=== PATIENT | male | born 1975 | race African-American/Black ===

== ENCOUNTER 2018-05-07 05:24 | Inpatient (IN) ==
[2018-05-07] MEDS ORDERED: HYDROmorphone PF Inj 2 MG/ML Vial IV.PUSH ONE (05:51)
[2018-05-07] MEDS ORDERED: Sod Chloride 0.9% Inj 1,000 ML IV.SIG SCH (06:00)
--- NOTE | 2018-05-07 06:10 | ED ---
HPI General Chief complaint: Sickle Cell Stated complaint: pain Time Seen by Provider: 05/07/18 05:49 Source: patient Mode of arrival: ambulatory Limitations: no limitations History of Present Illness HPI narrative: The patient is a 42 year old male who presents to the [facility] emergency department with a history of reported sickle cell pain crisis that began at 11:15 PM. He reports that it awoke him from sound sleep. He reports that he last took a oxycodone for pain at 7:30 PM. He reports that he is visiting from [place]. The patient reports having a history of sickle cell anemia. He reports that his pain is located in the left hip and low back. He denies having any fevers or chills. He denies having any chest pain, chest pressure, or shortness of breath. On review of systems otherwise, the patient denies having any cough, congestion, neck pain, abdominal pain, vomiting, diarrhea, urinary symptoms, or neurologic symptoms. The patient reports having some swelling in his left leg. He reports that this comes and goes related to a prior injury. Related Data Home Medications Medication Instructions Recorded Confirmed allopurinol 300 mg PO DAILY 05/07/18 05/07/18 folic acid 1 mg PO DAILY 05/07/18 05/07/18 hydroxyurea 500 mg PO DAILY NEB 05/07/18 05/07/18 Allergies Allergy/AdvReac Type Severity Reaction Status Date / Time butorphanol Allergy Severe N/V Unverified 05/07/18 05:26 ketorolac Allergy Severe Itching Unverified 05/07/18 05:26 AND SOB morphine Allergy Severe ITCHING, Unverified 05/07/18 05:26 HIVES, SOB promethazine Allergy Severe SOB AND Unverified 05/07/18 05:26 TWITCHING Review of Systems ROS: all other systems reviewed are negative [facility] Medical History Medical History Port-A-Cath in place (Acute) Sickle cell anemia (Acute) Surgical History Surgical History No history of previous surgery (Acute) S/P cholecystectomy (Acute) S/P hip replacement (Acute) Social History Social History Substance History: No History of Abuse Smoking Status: Current every day smoker Tobacco Type: Cigarettes Cigarettes Per Day: 3.5 How Often Do You Have a Drink Containing Alcohol: Never Recent Travel in [facility] within the Last 8 Weeks: No Recent Out of Country Travel within the Last 8 Weeks: No Immunization History Tetanus Immunization: <5 Years Exam Const General: cooperative, no acute distress and well developed Nutritional Appearance: well nourished Orientation: alert, awake and oriented x3 [facility] Head: normocephalic and atraumatic Nose: no nasal discharge and no epistaxis Mouth: moist mucous membranes Throat: posterior oropharynx normal and uvula midline Eyes Sclera: normal sclerae Pupils: PERRL Neck Neck: no meningeal signs, trachea midline and no JVD Resp Effort & Inspection: no use of accessory muscles Auscultation: clear to auscultation bilaterally Cardio Rate: regular rate Rhythm: regular rhythm Heart Sounds: murmur (1/6 systolic murmur, no gallops or rubs.) GI Inspection: non-distended Palpation: soft, no hepatosplenomegaly, no guarding, not rigid and nontender Auscultation: normal bowel sounds Back/Spine/Pelvis Back: no CVA tenderness Cervical Spine: No cervical spinal tenderness Thoracic/Lumbar Spine: No thoracic spinal tenderness and No lumbar spinal tenderness Skin General: dry skin (warm) Neuro General: alert, awake, oriented x3 and other (Grossly nonfocal.) Speech: speech normal Motor: no movement abnormalities noted Extrem General: normal to inspection (Except in the area of interest, the left lower extremity. The patient has scarring noted from prior skin grafting, left leg is slightly larger than the right. No joint redness or swelling.), calf tenderness, no clubbing, no cyanosis and edema Laterality: on the left Left upper extremity: normal to inspection and full ROM Right lower extremity: normal to inspection and full ROM Left lower extremity: lower leg (Scarring noted to the left lower extremity from prior skin grafting. Left leg is slightly enlarged compared to the right.) Psych Mood: congruent mood Affect: normal affect Judgment: judgment good Course Initial Documented Vital Signs Temperature 98.8 F 05/07/18 05:27 Respiratory Rate 16 05/07/18 05:27 Blood Pressure 164/90 H 05/07/18 05:27 Pulse Oximetry 96 05/07/18 05:27 Last Documented Vital Signs Temperature 98.8 F 05/07/18 05:27 Pulse Rate 68 05/07/18 06:36 Respiratory Rate 18 05/07/18 06:36 Blood Pressure 138/58 L 05/07/18 06:36 Pulse Oximetry 97 05/07/18 06:36 Sign Out Sign Out Data: Patient Sign Out occurred on 05/07/18 at 08:13. Patient's care was discussed, and care was transferred from Sonam Hughes MD to Chiki Phillips MD. Sign Out Comment: The patient's case was checked out to the oncoming emergency physician to disposition the patient based on the conclusion of his workup. The patient's case was checked out at the conclusion of my shift. The patient is pending laboratory studies and ultrasound of the left lower extremity to rule out DVT as well as reexamination for pain improvement after pain medication administration. Last updated by Sonam Hughes MD at 05/07/18 06:40 Post-Handoff Eval: Case is checked out to me at [address] Hughes. Workup is reviewed in entirety with the patient. Hemoglobin is down to 6.0. Ultrasound negative for DVT. Patient will be admitted to the medical residents for blood transfusion and symptom relief and IV hydration. He is renal insufficiency as well. Medical Decision Making MDM Narrative Medical decision making narrative: During the course of the patient's emergency department visit, the patient's history, examination, and differential diagnosis were reviewed with the patient. The patient was placed on a property assessment monitor with oximetry and frequent blood pressure monitoring. The patient had IV access obtained and blood work sent for analysis. Diagnostic evaluation was started regarding the patient's reported sickle cell related pain. An ultrasound of the left lower extremity was ordered to rule out DVT due to the swelling noted. The patient was initially provided normal saline 1 L IV fluid bolus, Dilaudid 1 mg IV, Zofran 4 mg IV. The patient's laboratory studies and ultrasound are pending at the conclusion of my shift. The patient's case will be checked out to the oncoming emergency physician to disposition the patient based on the conclusion of his workup and reexamination for pain improvement. Medical Screen Exam Complete: Yes Emergency Medical Condition: Yes Differential Diagnosis Differential Diagnosis: Sickle cell pain crisis, versus arthritis, versus DVT Medical Records Medical records reviewed: Yes I reviewed the patient's medical records. Lab Data Result diagrams: 05/07/18 06:01 05/07/18 06:01 Lab Results 05/07/18 05/07/18 05/07/18 Range/Units 06:01 06:01 06:01 WBC 13.7 H (4.0-11.0) th/mm3 RBC 1.76 L (4.50-5.90) mil/mm3 Hgb 6.0 L* (13.0-17.0) gm/dL Hct 18.1 L* (39.0-51.0) % MCV 102.8 H (80.0-100.0) fL MCH 34.1 H (27.0-34.0) pg MCHC 33.1 (32.0-36.0) % RDW 22.2 H (11.6-17.2) % Plt Count 235 (150-450) th/mm3 MPV 8.1 (7.0-11.0) fL Prelim Diff (Auto) Slide review pending Neut % (Auto) 39.9 (16.0-70.0) % Lymph % (Auto) 42.7 (9.0-44.0) % [place] % (Auto) 8.9 H (0.0-8.0) % Eos % (Auto) 8.0 H (0.0-4.0) % Baso % (Auto) 0.5 (0.0-2.0) % Neut # (Auto) 5.4 (1.8-7.7) th/mm3 Lymph # (Auto) 5.8 H (1.0-4.8) th/mm3 [place] # (Auto) 1.2 H (0.0-0.9) th/mm3 Eos # (Auto) 1.1 H (0.0-0.4) th/mm3 Baso # (Auto) 0.1 (0.0-0.2) th/mm3 WBC Differential Manual diff final Seg Neuts % (Manual) 39 (16-70) % Band Neuts % (Manual) 1 (0-6) % Lymphocytes % (Manual) 46 H (9-44) % Monocytes % (Manual) 6 (0-8) % Eosinophils % (Manual) 7 H (0-4) % Myelocytes % (Man) 1 H (0-0) % Abs Neuts (Manual) 5.6 (1.8-7.7) th/mm3 Nucleated RBCs/100 WBC 2 H (0-0) /100 WBC Differential Comment . Platelet Estimate Normal (Normal) Platelet Morphology Normal (Normal) Polychromasia 2.8 H (0.0-1.9) % Pappenheimer Bodies Present H (None) Ovalocytes 1+ H (None) Retic Count 8.6 H (0.4-3.0) % Absolute Retic 150.4 H (20.0-150.0) mil/L PT (9.8-11.6) sec INR Ratio APTT (23.4-31.7) sec Sodium 145 (136-145) meq/L Potassium 5.4 H (3.5-5.1) meq/L Chloride 120 H (98-107) meq/L Carbon Dioxide 19.2 L (21.0-32.0) meq/L Anion Gap 6 (5-15) meq/L BUN 44 H (7-18) mg/dL Creatinine 2.68 H (0.60-1.30) mg/dL Estimated GFR 32 L (>89) mL/min Random Glucose 89 (74-106) mg/dL Calcium 7.8 L (8.5-10.1) mg/dL Total Bilirubin 1.2 H (0.2-1.0) mg/dL AST 23 (15-37) U/L ALT 28 (12-78) U/L Alkaline Phosphatase 140 H (45-117) U/L C-Reactive Protein 1.23 H Cancelled (0.00-0.30) mg/dL Total Protein 6.8 (6.4-8.2) g/dL Albumin 3.1 L (3.4-5.0) g/dL Lipase 328 (73-393) U/L Urine Color (Yellw/Straw) Urine Clarity (Clear) Urine pH (5.0-8.5) Ur Specific [place] (1.002-1.035) Urine Protein (Neg-Trace) mg/dL Urine Glucose (UA) (Negative) mg/dL Urine Ketones (Negative) mg/dL Urine Occult Blood (Negative) Urine Nitrate (Negative) Urine Bilirubin (Negative) Urine Urobilinogen (Less than 2) mg/dL Ur Leukocyte Esterase (Negative) Urine RBC (0-3) /hpf Urine WBC (0-5) /hpf Urine Mucus (Occasional) /lpf Micro UA Comment Ur Microscopic Review Urine Culture Comments 05/07/18 05/07/18 05/07/18 Range/Units 06:01 06:11 07:40 WBC (4.0-11.0) th/mm3 RBC (4.50-5.90) mil/mm3 Hgb (13.0-17.0) gm/dL Hct (39.0-51.0) % MCV (80.0-100.0) fL MCH (27.0-34.0) pg MCHC (32.0-36.0) % RDW (11.6-17.2) % Plt Count (150-450) th/mm3 MPV (7.0-11.0) fL Prelim Diff (Auto) Neut % (Auto) (16.0-70.0) % Lymph % (Auto) (9.0-44.0) % [place] % (Auto) (0.0-8.0) % Eos % (Auto) (0.0-4.0) % Baso % (Auto) (0.0-2.0) % Neut # (Auto) (1.8-7.7) th/mm3 Lymph # (Auto) (1.0-4.8) th/mm3 [place] # (Auto) (0.0-0.9) th/mm3 Eos # (Auto) (0.0-0.4) th/mm3 Baso # (Auto) (0.0-0.2) th/mm3 WBC Differential Seg Neuts % (Manual) (16-70) % Band Neuts % (Manual) (0-6) % Lymphocytes % (Manual) (9-44) % Monocytes % (Manual) (0-8) % Eosinophils % (Manual) (0-4) % Myelocytes % (Man) (0-0) % Abs Neuts (Manual) (1.8-7.7) th/mm3 Nucleated RBCs/100 WBC (0-0) /100 WBC Differential Comment Platelet Estimate (Normal) Platelet Morphology (Normal) Polychromasia (0.0-1.9) % Pappenheimer Bodies (None) Ovalocytes (None) Retic Count (0.4-3.0) % Absolute Retic (20.0-150.0) mil/L PT 10.5 (9.8-11.6) sec INR 1.0 Ratio APTT 31.3 (23.4-31.7) sec Sodium (136-145) meq/L Potassium (3.5-5.1) meq/L Chloride (98-107) meq/L Carbon Dioxide (21.0-32.0) meq/L Anion Gap (5-15) meq/L BUN (7-18) mg/dL Creatinine (0.60-1.30) mg/dL Estimated GFR (>89) mL/min Random Glucose (74-106) mg/dL Calcium (8.5-10.1) mg/dL Total Bilirubin (0.2-1.0) mg/dL AST (15-37) U/L ALT (12-78) U/L Alkaline Phosphatase (45-117) U/L C-Reactive Protein (0.00-0.30) mg/dL Total Protein (6.4-8.2) g/dL Albumin (3.4-5.0) g/dL Lipase Cancelled (73-393) U/L Urine Color Straw (Yellw/Straw) Urine Clarity Clear (Clear) Urine pH 6.0 (5.0-8.5) Ur Specific [place] 1.006 (1.002-1.035) Urine Protein 100 H (Neg-Trace) mg/dL Urine Glucose (UA) Negative (Negative) mg/dL Urine Ketones Negative (Negative) mg/dL Urine Occult Blood Negative (Negative) Urine Nitrate Negative (Negative) Urine Bilirubin Negative (Negative) Urine Urobilinogen Less than 2 (Less than 2) mg/dL Ur Leukocyte Esterase Negative (Negative) Urine RBC Less than 1 (0-3) /hpf Urine WBC Less than 1 (0-5) /hpf Urine Mucus Few H (Occasional) /lpf Micro UA Comment Culture not ind Ur Microscopic Review Not Reportable Urine Culture Comments Culture not ind Imaging Data Radiologist's impression: Venous Doppler Study 05/07/18 05:50 CONCLUSION: 1. The study is negative for lower extremity deep venous thrombosis. ECG Data Attestation: I personally reviewed and interpreted this ECG as follows: Interpretation: The patient had a EKG done on arrival. The patient's EKG shows a sinus rhythm with a sinus arrhythmia, heart rate of 68, QRS duration is 89 ms , QTC 399 ms. T waves are inverted in aVL. Discharge Plan Discharge Disposition Patient Disposition: 30 Still Patient Discharge Details Diagnosis: Sickle cell pain crisis Physicians Team ED Provider: Chiki Phillips Rxs /Orders / Referrals /Forms Prescriptions: No Action folic acid 1 mg Tablet 1 mg PO DAILY RF: 0 hydroxyurea 500 mg Capsule 500 mg PO DAILY NEB RF: 0 allopurinol 300 mg Tablet 300 mg PO DAILY RF: 0 Status ED Status: With Doctor
[2018-05-07 06:46] LABS: Bilirubin,Urine Negative (Negative); Clarity,Urine Clear (Clear); Color,Urine Straw (Yellw/Straw); Glucose,Urine (UA) Negative (Negative); Leukocyte Esterase,Urine Negative (Negative); Mucus,Urine Few /lpf (Occasional); Nitrite,Urine Negative (Negative); Specific Gravity,Urine 1.006 (1.002-1.035)
[2018-05-07 07:03] LABS: Alanine Aminotransferase 28 U/L (12-78); Albumin 3.1 g/dL (3.4-5.0); Anion Gap 6 meq/L (5-15); Aspartate Aminotransferase 23 U/L (15-37); Blood Urea Nitrogen 44 mg/dL (7-18); C-Reactive Protein 1.23 mg/dL (0.00-0.30); Calcium 7.8 mg/dL (8.5-10.1); Carbon Dioxide 19.2 meq/L (21.0-32.0); Chloride 120 meq/L (98-107); Glomerular Filtration Rate 32 mL/min (>89); Glucose,Random 89 mg/dL (74-106); Lipase 328 U/L (73-393); Potassium 5.4 meq/L (3.5-5.1); Sodium 145 meq/L (136-145)
[2018-05-07 07:05] LABS: Alkaline Phosphatase 140 U/L (45-117); Total Protein 6.8 g/dL (6.4-8.2)
[2018-05-07 07:23] LABS: Baso # (Auto) 0.1 th/mm3 (0.0-0.2); Baso % (Auto) 0.5 % (0.0-2.0); Eos # (Auto) 1.1 th/mm3 (0.0-0.4); Lymph # (Auto) 5.8 th/mm3 (1.0-4.8); Lymph % (Auto) 42.7 % (9.0-44.0); Mean Corpuscular HGB Conc 33.1 % (32.0-36.0); Mean Corpuscular Hemoglobin 34.1 pg (27.0-34.0); Mean Corpuscular Volume 102.8 fL (80.0-100.0); Mean Platelet Volume 8.1 fL (7.0-11.0); Mono # (Auto) 1.2 th/mm3 (0.0-0.9); Mono % (Auto) 8.9 % (0.0-8.0); Neut # (Auto) 5.4 th/mm3 (1.8-7.7); Neut % (Auto) 39.9 % (16.0-70.0); Platelet Count 235 th/mm3 (150-450); Red Blood Count 1.76 mil/mm3 (4.50-5.90); Red Cell Distribution Width 22.2 % (11.6-17.2); Reticulocyte Percent 8.6 % (0.4-3.0); White Blood Count 13.7 th/mm3 (4.0-11.0)
[2018-05-07 07:28] LABS: Hematocrit 18.1 % (39.0-51.0)
--- NOTE | 2018-05-07 07:42 | US ---
EXAM DATE: 05/07/2018 7:38 AM EST AGE/SEX: 42 years / Male INDICATIONS: Left leg swelling. CLINICAL DATA: This is the patient's initial encounter. Patient reports that signs and symptoms have been present for 3 days and indicates a pain score of 3/10. MEDICAL/SURGICAL HISTORY: . Sickle cell anemia. Cholecystectomy. Port a cath placement. Right hip replacement. COMPARISON: No prior exams available for comparison. TECHNIQUE: Venous ultrasound of both lower extremities was performed from the inguinal ligament to t he proximal calf. Real-time, color Doppler and spectral tracing, compression and augmentation techni ques were used. FINDINGS: Normal compression of the deep venous system from the inguinal region to the proximal calf . No echogenic clot is seen. Normal response of the venous system to augmentation and respiration. CONCLUSION: 1. The study is negative for lower extremity deep venous thrombosis. Electronically signed by: David Bob MD 05/07/2018 7:40 AM EST
[2018-05-07 07:59] LABS: Activated Partial Thrombo Time 31.3 sec (23.4-31.7); Prothrombin Time 10.5 sec (9.8-11.6)
[2018-05-07 07:59] LABS: Eosinophils 7 % (0-4); Lymphocytes 46 % (9-44); Monocytes 6 % (0-8); Myelocytes 1 % (0-0); Ovalocytes 1+; Platelet Estimate Normal (Normal); Platelet Morphology Normal (Normal); Tallied Nucleated RBC 2 (0-0)
[2018-05-07 08:00] LABS: Pappenheimer Bodies Present; Polychromasia 2.8 % (0.0-1.9)
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
[2018-05-07] MEDS ORDERED: Bisacodyl 10 MG Supp RECTAL PRN (08:52)
[2018-05-07] MEDS ORDERED: Naloxone Inj 0.4 MG/ML Vial IV.PUSH PRN (08:52)
[2018-05-07] MEDS ORDERED: Acetaminophen 325 MG Tablet PO PRN (08:52)
[2018-05-07] MEDS: HYDROmorphone PF Inj 1 MG/ML Ampul IV.PUSH PRN ×5 (09:29→22:47)
--- NOTE | 2018-05-07 09:57 | XR ---
EXAM DATE: 05/07/2018 9:49 AM EST AGE/SEX: 42 years / Male INDICATIONS: . Short of breath, history of Sickle cell CLINICAL DATA: This is the patient's initial encounter. Patient reports that signs and symptoms have been present for 1 day and indicates a pain score of 10/10. MEDICAL/SURGICAL HISTORY: Sickle Cell disease. None. COMPARISON: [facility] [place], CHEST PA & LAT, 08/19/2015. . FINDINGS: PA and lateral views of the chest demonstrate chronic appearing interstitial densities. Heart mildly enlarged. Right-sided port unchanged. The cardiomediastinal contours are unremarkable. Sclerotic simmons ges of the skeleton more notably involving the shoulders. CONCLUSION: 1. Chronic appearing interstitial densities. 2. Cardiomegaly. 3. No active consolidation. Electronically signed by: David Bob MD 05/07/2018 9:56 AM EST
--- NOTE | 2018-05-07 10:09 | XR ---
EXAM DATE: 05/07/2018 9:54 AM EST AGE/SEX: 42 years / Male INDICATIONS: Left hip pain with any motion and weight bearing. CLINICAL DATA: This is the patient's initial encounter. Patient reports that signs and symptoms have been present for 1 day and indicates a pain score of 10/10. MEDICAL/SURGICAL HISTORY: Sickle Cell disease. None. COMPARISON: [facility] – [place], PELVIS AP ONLY, 08/14/2015. . FINDINGS: Severe arthropathic deformity of the left hip is noted. There is flattening and remodeling of the fem oral head and remodeling of the acetabular cup. Marginal spurring is again noted along the superior m argin of the acetabulum. The bones demonstrate a patchy sclerotic texture with interspersed areas of radiolucency. Subcortical cyst formation appears to be present along the roof of the acetabulum. The patchy texture is also noted within the left hemipelvis. There are no discrete findings of acute fracture. There is no significant soft tissue swelling. CONCLUSION: Advanced arthropathy of the left hip joint with underlying patchy sclerosis and areas of radiolucency . As previously indicated this may represent changes of chronic bone infarction associated with sickl e cell disease. No discrete evidence of fracture or dislocation. Degenerative changes of the left hip. Electronically signed by: Neftali Cleary MD 05/07/2018 10:07 AM EST
[2018-05-07] MEDS: oxyCODONE/Acetaminophen 10/325 Tablet PO PRN ×2 (12:06→17:48)
[2018-05-07] MEDS: Sodium Chloride 0.45 % Inj 1,000 ML IV.CONT SCH ×2 (12:06→17:26)
[2018-05-07] MEDS: Hydroxyurea 500 MG Capsule PO SCH ×2 (12:06→17:48)
[2018-05-07] MEDS: Folic Acid 1 MG Tablet PO SCH (12:12)
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
--- NOTE | 2018-05-07 19:07 | US ---
EXAM DATE: 05/07/2018 6:51 PM EST AGE/SEX: 42 years / Male INDICATIONS: Increased lab values. CLINICAL DATA: This is the patient's initial encounter. Patient reports that signs and symptoms have been present for 1 day and indicates a pain score of 1/10. MEDICAL/SURGICAL HISTORY: Sickle Cell disease. Port-A -Cath in place. Cholecystectomy. Right H ip replacement. COMPARISON: No prior exams available for comparison. MEASUREMENTS: Right Kidney:__10.3 x 5.5 x 4.3 cm Left Kidney:__11.3 x 5.7 x 1.5 cm FINDINGS: Right Kidney: 1.8 cm mid zone cyst. No hydronephrosis. There is increased parenchymal echogenicity. Left Kidney: Increased echotexture. No mass or hydronephrosis. Bladder: Within normal limits given the degree of distension. Other: None. CONCLUSION: 1. Echogenic kidneys typical of chronic parenchymal disease. 2. No evidence of acute obstructive uropathy. 3. 1.8 cm benign appearing cyst of the right kidney. Electronically signed by: Armand Kendrick MD 05/07/2018 7:06 PM EST
--- NOTE | 2018-05-07 21:04 | ECG ---
Date Performed: 05/07/2018 Time Performed: 06:23:12 PTAGE: 42 years EKG: Sinus rhythm WITH SINUS ARRHYTHMIA NONSPECIFIC T-WAVE ABNORMALITY BORDERLINE ECG PREVIOUS TRACING : 08/18/2015 01.59 Since the previous tracing, no significant change noted DOCTOR: Azar Lira Interpretating Date/Time 05/07/2018 21:03:35
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
[2018-05-07] MEDS: Heparin - SQ 10,000 UNITS/ML Vial SQ SCH (21:34)
[2018-05-08] MEDS: Sodium Chloride 0.45 % Inj 1,000 ML IV.CONT SCH ×3 (03:07→19:25)
[2018-05-08] MEDS: HYDROmorphone PF Inj 1 MG/ML Ampul IV.PUSH PRN ×3 (04:59→11:12)
[2018-05-08 06:49] LABS: Baso # (Auto) 0.1 th/mm3 (0.0-0.2); Baso % (Auto) 0.4 % (0.0-2.0); Eos # (Auto) 1.1 th/mm3 (0.0-0.4); Eos % (Auto) 8.9 % (0.0-4.0); Lymph # (Auto) 4.5 th/mm3 (1.0-4.8); Lymph % (Auto) 34.6 % (9.0-44.0); Mean Corpuscular HGB Conc 34.2 % (32.0-36.0); Mean Corpuscular Hemoglobin 34.7 pg (27.0-34.0); Mean Corpuscular Volume 101.3 fL (80.0-100.0); Mean Platelet Volume 7.6 fL (7.0-11.0); Mono # (Auto) 1.2 th/mm3 (0.0-0.9); Mono % (Auto) 9.3 % (0.0-8.0); Neut % (Auto) 46.8 % (16.0-70.0); Platelet Count 219 th/mm3 (150-450); Red Blood Count 1.58 mil/mm3 (4.50-5.90); Red Cell Distribution Width 21.7 % (11.6-17.2); White Blood Count 12.9 th/mm3 (4.0-11.0)
[2018-05-08 06:53] LABS: Reticulocyte Percent 7.6 % (0.4-3.0)
[2018-05-08 06:54] LABS: Hemoglobin 5.5 gm/dL (13.0-17.0)
[2018-05-08 07:17] LABS: Alanine Aminotransferase 29 U/L (12-78); Albumin 3.1 g/dL (3.4-5.0); Anion Gap 5 meq/L (5-15); Aspartate Aminotransferase 29 U/L (15-37); Blood Urea Nitrogen 38 mg/dL (7-18); Calcium 7.5 mg/dL (8.5-10.1); Carbon Dioxide 20.5 meq/L (21.0-32.0); Chloride 119 meq/L (98-107); Glomerular Filtration Rate 35 mL/min (>89); Glucose,Random 81 mg/dL (74-106); Phosphorus 3.3 mg/dL (2.5-4.9); Potassium 5.5 meq/L (3.5-5.1); Sodium 144 meq/L (136-145)
[2018-05-08 07:19] LABS: Alkaline Phosphatase 128 U/L (45-117); Total Protein 6.3 g/dL (6.4-8.2)
[2018-05-08 07:29] LABS: Complement C3 69 mg/dL (90-180)
[2018-05-08 07:53] LABS: Eosinophils 13 % (0-4); Monocytes 4 % (0-8)
[2018-05-08 07:54] LABS: Howell-Jolly Bodies Present; Lymphocytes 37 % (9-44); Metamyelocytes 1 % (0-1); Pappenheimer Bodies Present; Tallied Nucleated RBC 12 (0-0)
[2018-05-08 07:55] LABS: Polychromasia 2.7 % (0.0-1.9)
[2018-05-08 07:56] LABS: Ovalocytes 2+; Platelet Estimate Normal (Normal); Platelet Morphology Normal (Normal); Sickle Cells 1+
[2018-05-08 08:03] LABS: Hepatitits B Surface Antigen Nonreactive (Nonreactive)
[2018-05-08] MEDS ORDERED: Sodium Polystyrene Sulfonate/Sorbitol Liq 15 GM/60 ML UDC PO ONE (08:08)
[2018-05-08 08:30] LABS: Hepatitis A IgM Antibody Nonreactive (Nonreactive)
[2018-05-08] MEDS: Folic Acid 1 MG Tablet PO SCH (08:50)
[2018-05-08] MEDS: Heparin - SQ 10,000 UNITS/ML Vial SQ SCH ×2 (08:50→21:55)
[2018-05-08] MEDS: Hydroxyurea 500 MG Capsule PO SCH ×2 (08:50→14:11)
[2018-05-08] MEDS: oxyCODONE/Acetaminophen 10/325 Tablet PO PRN ×2 (10:29→17:59)
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
[2018-05-08] MEDS ORDERED: HYDROmorphone PF Inj 1 MG/ML Ampul IV.PUSH SCH (13:00)
[2018-05-08] MEDS: HYDROmorphone PF Inj 2 MG/ML Vial IV.PUSH SCH ×4 (14:11→23:17)
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
--- NOTE | 2018-05-08 15:49 | P.PNONC ---
Subjective Interval history: Patient lying in bed, in no acute distress. He states he is feeling better today. He reports his pain has improved however he is still having low back pain and is awaiting as needed who is getting his pain medications. He denies any chest pain or shortness of breath. Objective Vital Signs/Intake & Output: Vital Signs 05/07/18 16:00 05/07/18 19:06 05/07/18 20:00 Temperature 98.5 F 98.3 F Pulse Rate 70 70 Respiratory Rate 16 18 18 Blood Pressure 117/56 L 113/54 L Pulse Oximetry 98 05/07/18 23:17 05/08/18 00:00 05/08/18 04:25 Temperature 98.5 F 98.4 F Pulse Rate 69 87 Respiratory Rate 18 17 20 Blood Pressure 118/62 126/62 Pulse Oximetry 99 93 L 05/08/18 05:29 05/08/18 08:00 05/08/18 12:00 Temperature 98.9 F 98.2 F Pulse Rate 67 71 Respiratory Rate 18 19 19 Blood Pressure 130/63 160/72 H Pulse Oximetry 93 L 92 L Intake & Output 05/07/18 05/08/18 05/08/18 18:59 06:59 18:59 Intake Total 1000 / 1000 1000 / 1000 Output Total 1000 / 1000 Balance -1000 / -1000 1000 / 1000 1000 / 1000 Weight 86.183 kg 87.4 kg Intake: IV 1000 / 1000 1000 / 1000 1/2 Normal Saline Inj 1,000 ML 1000 / 1000 1000 / 1000 @ 125 mls/hr IV.CONT .Q8H LEX Rx#:[id number] Output: Urine 1000 / 1000 Other: # Voids 1 Date of Last Bowel Movement 05/06/18 05/06/18 Weight On Admission 86.183 kg Result Diagrams: 05/08/18 05:28 05/08/18 05:28 Laboratory Results: Laboratory Results - last 24 hr 05/08/18 05/08/18 05/08/18 05:08 05:28 05:28 WBC 12.9 H RBC 1.58 L Hgb 5.5 L* Hct 16.0 L* MCV 101.3 H MCH 34.7 H MCHC 34.2 RDW 21.7 H Plt Count 219 MPV 7.6 Prelim Diff (Auto) Slide review pending Neut % (Auto) 46.8 Lymph % (Auto) 34.6 [place] % (Auto) 9.3 H Eos % (Auto) 8.9 H Baso % (Auto) 0.4 Neut # (Auto) 6.0 Lymph # (Auto) 4.5 [place] # (Auto) 1.2 H Eos # (Auto) 1.1 H Baso # (Auto) 0.1 WBC Differential Manual diff final Seg Neuts % (Manual) 44 Band Neuts % (Manual) 1 Lymphocytes % (Manual) 37 Monocytes % (Manual) 4 Eosinophils % (Manual) 13 H Metamyelocytes % (Man) 1 Abs Neuts (Manual) 5.9 Nucleated RBCs/100 WBC 12 H Differential Comment . Platelet Estimate Normal Platelet Morphology Normal Polychromasia 2.7 H Basophilic Stippling Faint H Pappenheimer Bodies Present H Sickle Cells 1+ H Ovalocytes 2+ H [place] Bodies Present H Retic Count 7.6 H Absolute Retic 122.2 Sodium Potassium Chloride Carbon Dioxide Anion Gap BUN Creatinine Estimated GFR Random Glucose Calcium Phosphorus Total Bilirubin AST ALT Alkaline Phosphatase Total Protein Albumin Ur 24 Hour Volume 2925 Ur Total Protein 24 Hr 1632 H Complement C3 Complement C4 Hepatitis A IgM Ab Hep Bs Antigen Hep B Core IgM Ab Hep C IgG Ab 05/08/18 05/08/18 05:28 05:28 WBC RBC Hgb Hct MCV MCH MCHC RDW Plt Count MPV Prelim Diff (Auto) Neut % (Auto) Lymph % (Auto) [place] % (Auto) Eos % (Auto) Baso % (Auto) Neut # (Auto) Lymph # (Auto) [place] # (Auto) Eos # (Auto) Baso # (Auto) WBC Differential Seg Neuts % (Manual) Band Neuts % (Manual) Lymphocytes % (Manual) Monocytes % (Manual) Eosinophils % (Manual) Metamyelocytes % (Man) Abs Neuts (Manual) Nucleated RBCs/100 WBC Differential Comment Platelet Estimate Platelet Morphology Polychromasia Basophilic Stippling Pappenheimer Bodies Sickle Cells Ovalocytes [place] Bodies Retic Count Absolute Retic Sodium 144 Potassium 5.5 H Chloride 119 H Carbon Dioxide 20.5 L Anion Gap 5 BUN 38 H Creatinine 2.47 H Estimated GFR 35 L Random Glucose 81 Calcium 7.5 L Phosphorus 3.3 Total Bilirubin 1.2 H AST 29 ALT 29 Alkaline Phosphatase 128 H Total Protein 6.3 L Albumin 3.1 L Ur 24 Hour Volume Ur Total Protein 24 Hr Complement C3 69 L Complement C4 23 Hepatitis A IgM Ab Nonreactive Hep Bs Antigen Nonreactive Hep B Core IgM Ab Nonreactive Hep C IgG Ab Nonreactive Imaging Studies: Impressions Abdomen/Bladder Ultrasound 05/07/18 00:00 CONCLUSION: 1. Echogenic kidneys typical of chronic parenchymal disease. 2. No evidence of acute obstructive uropathy. 3. 1.8 cm benign appearing cyst of the right kidney. Medications: Active Medications Generic Name Dose Route Start Last Admin Trade Name Freq PRN Reason Stop Dose Admin Diphenhydramine HCl 25 mg 05/07/18 12:35 05/08/18 12:00 Benadryl PO 25 mg Q6H PRN Administration ITCHING Folic Acid 1 mg 05/07/18 09:30 05/08/18 08:50 Folic Acid PO 1 mg DAILY LEX Administration Heparin Sodium (Porcine) 5,000 units 05/07/18 21:30 05/08/18 08:50 Heparin Inj SQ 5,000 units Q12HR LEX Administration Hydromorphone HCl 2 mg 05/08/18 14:00 05/08/18 14:11 Dilaudid Pf Inj IV.PUSH 2 mg Q3H LEX Administration Hydroxyurea 500 mg 05/08/18 13:00 05/08/18 14:11 Hydrea PO 500 mg Q12H LEX Administration Ondansetron HCl 4 mg 05/07/18 08:52 05/08/18 12:00 Zofran Inj IV.PUSH 4 mg Q6H PRN Administration NAUSEA OR VOMITING Oxycodone/Acetaminophen 1 tab 05/07/18 08:52 05/08/18 10:29 Percocet 10/325 Mg PO 1 tab Q6H PRN Administration PAIN SCALE 6 TO 10 Objective Remarks: GENERAL: Well-nourished, well-developed male patient, in no acute distress. SKIN: Warm and dry. HEAD: Normocephalic. EYES: No scleral icterus. No injection or drainage. NECK: Supple, trachea midline. CARDIOVASCULAR: Regular rate and rhythm without murmurs. RESPIRATORY: Breath sounds equal bilaterally. No accessory muscle use. GASTROINTESTINAL: Abdomen soft, non-tender, nondistended. EXTREMITIES: No cyanosis, or edema. MUSCULOSKELETAL: Adequate muscle tone. NEUROLOGICAL: No obvious focal deficit. Awake, alert, and oriented x3. PSYCHIATRIC: Appropriate mood and affect; insight and judgment normal. Assessment/Plan - Plan Mr. Cesar is a pleasant 42-year-old gentleman with a history of sickle cell disease, currently hospitalized for sickle cell pain crisis. His pain includes lower back pain and bilateral leg pain that started on Monday. He has additional medical history of chronic kidney disease, iron overload, hemoglobin SS disease and gout. Recommendations: 1. Sickle cell pain crisis, continue pain medications. Monitor for oversedation. Continue IV fluid for hydration. 2. Sickle cell anemia, hemoglobin 5.5 today. Currently asymptomatic. We will hold transfusions unless patient becomes symptomatic or hemodynamically unstable. He has a history of iron overload. 3. Repeat CBC in the a.m. - Attending Statement The exam, history, and the medical decision-making described in the above note were completed with the assistance of the mid-level provider. I reviewed and agree with the findings presented. I attest that I had a [id number] encounter with the patient on the same day, and personally performed and documented my assessment and findings in the medical record. 42 yoM with sickle cell disease admitted with sickle cell pain crisis. Will continue supportive care including IVF, pain control, bowel regimen, incentive spirometry. Judicious use of blood products.
[2018-05-08] MEDS ORDERED: Polyethylene Glycol 3350 17 GM Packet PO PRN (16:24)
[2018-05-08] MEDS: Sodium Bicarbonate 650 MG Tablet PO SCH ×2 (17:55→23:16)
[2018-05-09] MEDS: Hydroxyurea 500 MG Capsule PO SCH ×2 (01:00→14:13)
[2018-05-09 01:35] LABS: Calcium 7.6 mg/dL (8.5-10.1); Carbon Dioxide 19.3 meq/L (21.0-32.0); Potassium 4.7 meq/L (3.5-5.1)
[2018-05-09] MEDS: HYDROmorphone PF Inj 2 MG/ML Vial IV.PUSH SCH ×5 (02:23→14:13)
[2018-05-09] MEDS: Sodium Chloride 0.45 % Inj 1,000 ML IV.CONT SCH ×2 (02:24→04:00)
[2018-05-09 08:29] LABS: Baso # (Auto) 0.1 th/mm3 (0.0-0.2); Baso % (Auto) 0.8 % (0.0-2.0); Eos # (Auto) 1.3 th/mm3 (0.0-0.4); Eos % (Auto) 9.8 % (0.0-4.0); Lymph # (Auto) 5.2 th/mm3 (1.0-4.8); Lymph % (Auto) 38.7 % (9.0-44.0); Mean Corpuscular HGB Conc 34.7 % (32.0-36.0); Mean Corpuscular Hemoglobin 34.5 pg (27.0-34.0); Mean Corpuscular Volume 99.4 fL (80.0-100.0); Mean Platelet Volume 7.4 fL (7.0-11.0); Mono # (Auto) 1.2 th/mm3 (0.0-0.9); Neut # (Auto) 5.6 th/mm3 (1.8-7.7); Neut % (Auto) 41.7 % (16.0-70.0); Platelet Count 209 th/mm3 (150-450); Red Blood Count 1.51 mil/mm3 (4.50-5.90); Red Cell Distribution Width 22.8 % (11.6-17.2); White Blood Count 13.5 th/mm3 (4.0-11.0)
[2018-05-09] MEDS: Folic Acid 1 MG Tablet PO SCH (08:31)
[2018-05-09] MEDS: Sodium Bicarbonate 650 MG Tablet PO SCH (08:31)
[2018-05-09 08:47] LABS: Hemoglobin 5.2 gm/dL (13.0-17.0)
[2018-05-09 09:01] LABS: Calcium 7.6 mg/dL (8.5-10.1)
[2018-05-09 10:44] LABS: Eosinophils 6 % (0-4); Lymphocytes 59 % (9-44); Monocytes 4 % (0-8); Ovalocytes 1+; Platelet Estimate Normal (Normal); Platelet Morphology Normal (Normal); Tallied Nucleated RBC 3 (0-0)
[2018-05-09 10:45] LABS: Howell-Jolly Bodies Present; Pappenheimer Bodies Present; Sickle Cells 1+; Target Cells 1+
--- NOTE | 2018-05-09 11:24 | P.PNFP ---
Subjective Interval history: Patient seen and examined at bedside this morning. Patient reports that his pain is well controlled and much less severe than it had been the past 2 days. He denies any chest pain, shortness of breath. He is moving his bowels. His hemoglobin was 5.2 this morning down from 6.0 on admission and 5.2 yesterday. Hematology practitioner, Cristel Moreno was contacted regarding care. She reports that if patient is asymptomatic he is okay to discharge without a transfusion. Patient reports that he will be traveling back to [place] today. He does not have any of his medications paper prescriptions will be printed. <Neelima Emanuel - 05/09/18 11:38> Results - Labs Result diagrams: 05/09/18 08:00 05/09/18 08:00 <Tu Mishra - 05/09/18 12:07> Abnormal lab results 05/08/18 05/08/18 05/09/18 Range/Units 18:00 20:15 08:00 WBC 13.5 H (4.0-11.0) th/mm3 RBC 1.51 L (4.50-5.90) mil/mm3 Hgb 5.2 L* (13.0-17.0) gm/dL Hct 15.0 L* (39.0-51.0) % MCH 34.5 H (27.0-34.0) pg RDW 22.8 H (11.6-17.2) % Pershing % (Auto) 9.0 H (0.0-8.0) % Eos % (Auto) 9.8 H (0.0-4.0) % Lymph # (Auto) 5.2 H (1.0-4.8) th/mm3 Pershing # (Auto) 1.2 H (0.0-0.9) th/mm3 Eos # (Auto) 1.3 H (0.0-0.4) th/mm3 Lymphocytes % (Manual) 59 H (9-44) % Eosinophils % (Manual) 6 H (0-4) % Nucleated RBCs/100 WBC 3 H (0-0) /100 WBC Pappenheimer Bodies Present H (None) Sickle Cells 1+ H (None) Target Cells 1+ H (None) Ovalocytes 1+ H (None) Wilson-Alicia Bodies Present H (None) Chloride 117 H (98-107) meq/L Carbon Dioxide 19.3 L (21.0-32.0) meq/L BUN 30 H (7-18) mg/dL Creatinine 2.41 H (0.60-1.30) mg/dL Estimated GFR 36 L (>89) mL/min Calcium 7.6 L (8.5-10.1) mg/dL Ur Total Protein 24 Hr 3262 H (0-150) mg/24hr 05/09/18 Range/Units 08:00 WBC (4.0-11.0) th/mm3 RBC (4.50-5.90) mil/mm3 Hgb (13.0-17.0) gm/dL Hct (39.0-51.0) % MCH (27.0-34.0) pg RDW (11.6-17.2) % Pershing % (Auto) (0.0-8.0) % Eos % (Auto) (0.0-4.0) % Lymph # (Auto) (1.0-4.8) th/mm3 Pershing # (Auto) (0.0-0.9) th/mm3 Eos # (Auto) (0.0-0.4) th/mm3 Lymphocytes % (Manual) (9-44) % Eosinophils % (Manual) (0-4) % Nucleated RBCs/100 WBC (0-0) /100 WBC Pappenheimer Bodies (None) Sickle Cells (None) Target Cells (None) Ovalocytes (None) Wilson-Alicia Bodies (None) Chloride 117 H (98-107) meq/L Carbon Dioxide (21.0-32.0) meq/L BUN 29 H (7-18) mg/dL Creatinine 2.35 H (0.60-1.30) mg/dL Estimated GFR 37 L (>89) mL/min Calcium 7.6 L (8.5-10.1) mg/dL Ur Total Protein 24 Hr (0-150) mg/24hr Short CBC 05/09/18 Range/Units 08:00 WBC 13.5 H (4.0-11.0) th/mm3 Hgb 5.2 L* (13.0-17.0) gm/dL Hct 15.0 L* (39.0-51.0) % Plt Count 209 (150-450) th/mm3 BMP 05/08/18 05/09/18 20:15 08:00 Sodium 143 143 Potassium 4.7 D 5.0 Chloride 117 H 117 H Carbon Dioxide 19.3 L 21.0 BUN 30 H 29 H Creatinine 2.41 H 2.35 H Calcium 7.6 L 7.6 L <Tu Mishra - 05/09/18 12:07> Abnormal lab results 05/08/18 05/08/18 05/09/18 Range/Units 18:00 20:15 08:00 WBC 13.5 H (4.0-11.0) th/mm3 RBC 1.51 L (4.50-5.90) mil/mm3 Hgb 5.2 L* (13.0-17.0) gm/dL Hct 15.0 L* (39.0-51.0) % MCH 34.5 H (27.0-34.0) pg RDW 22.8 H (11.6-17.2) % Pershing % (Auto) 9.0 H (0.0-8.0) % Eos % (Auto) 9.8 H (0.0-4.0) % Lymph # (Auto) 5.2 H (1.0-4.8) th/mm3 Pershing # (Auto) 1.2 H (0.0-0.9) th/mm3 Eos # (Auto) 1.3 H (0.0-0.4) th/mm3 Lymphocytes % (Manual) 59 H (9-44) % Eosinophils % (Manual) 6 H (0-4) % Nucleated RBCs/100 WBC 3 H (0-0) /100 WBC Pappenheimer Bodies Present H (None) Sickle Cells 1+ H (None) Target Cells 1+ H (None) Ovalocytes 1+ H (None) Wilson-Alicia Bodies Present H (None) Chloride 117 H (98-107) meq/L Carbon Dioxide 19.3 L (21.0-32.0) meq/L BUN 30 H (7-18) mg/dL Creatinine 2.41 H (0.60-1.30) mg/dL Estimated GFR 36 L (>89) mL/min Calcium 7.6 L (8.5-10.1) mg/dL Ur Total Protein 24 Hr 3262 H (0-150) mg/24hr 05/09/18 Range/Units 08:00 WBC (4.0-11.0) th/mm3 RBC (4.50-5.90) mil/mm3 Hgb (13.0-17.0) gm/dL Hct (39.0-51.0) % MCH (27.0-34.0) pg RDW (11.6-17.2) % Pershing % (Auto) (0.0-8.0) % Eos % (Auto) (0.0-4.0) % Lymph # (Auto) (1.0-4.8) th/mm3 Pershing # (Auto) (0.0-0.9) th/mm3 Eos # (Auto) (0.0-0.4) th/mm3 Lymphocytes % (Manual) (9-44) % Eosinophils % (Manual) (0-4) % Nucleated RBCs/100 WBC (0-0) /100 WBC Pappenheimer Bodies (None) Sickle Cells (None) Target Cells (None) Ovalocytes (None) Wilson-Alicia Bodies (None) Chloride 117 H (98-107) meq/L Carbon Dioxide (21.0-32.0) meq/L BUN 29 H (7-18) mg/dL Creatinine 2.35 H (0.60-1.30) mg/dL Estimated GFR 37 L (>89) mL/min Calcium 7.6 L (8.5-10.1) mg/dL Ur Total Protein 24 Hr (0-150) mg/24hr Short CBC 05/09/18 Range/Units 08:00 WBC 13.5 H (4.0-11.0) th/mm3 Hgb 5.2 L* (13.0-17.0) gm/dL Hct 15.0 L* (39.0-51.0) % Plt Count 209 (150-450) th/mm3 BMP 05/08/18 05/09/18 20:15 08:00 Sodium 143 143 Potassium 4.7 D 5.0 Chloride 117 H 117 H Carbon Dioxide 19.3 L 21.0 BUN 30 H 29 H Creatinine 2.41 H 2.35 H Calcium 7.6 L 7.6 L <Neelima Emanuel A - 05/09/18 11:24> Physical Exam Vital signs: Vital Signs 05/08/18 16:00 05/08/18 20:00 05/09/18 00:00 Temperature 97.8 F 98.5 F 97.5 F L Pulse Rate 64 86 93 H Respiratory Rate 19 18 18 Blood Pressure 139/73 165/77 H 165/75 H Pulse Oximetry 95 95 93 L 05/09/18 04:00 05/09/18 08:00 Temperature 98.6 F 98.9 F Pulse Rate 94 H 90 Respiratory Rate 18 15 Blood Pressure 144/70 H 131/75 Pulse Oximetry 93 L 92 L Intake & Output 05/08/18 05/09/18 05/09/18 18:59 06:59 18:59 Intake Total 1000 / 1000 2480 / 2480 Balance 1000 / 1000 2480 / 2480 Weight 87.4 kg Intake: IV 1000 / 1000 1999 / 1999 1/2 Normal Saline Inj 1,000 ML 1000 / 1000 1999 @ 125 mls/hr IV.CONT .Q8H [facility] Rx#:[id number] Oral 480 / 480 Other: # Voids 4 5 Date of Last Bowel Movement 05/06/18 05/08/17 <Tu Mishra - 05/09/18 12:07> Vital Signs 05/08/18 12:00 05/08/18 16:00 05/08/18 20:00 Temperature 98.2 F 97.8 F 98.5 F Pulse Rate 71 64 86 Respiratory Rate 19 19 18 Blood Pressure 160/72 H 139/73 165/77 H Pulse Oximetry 92 L 95 95 05/09/18 00:00 05/09/18 04:00 05/09/18 08:00 Temperature 97.5 F L 98.6 F 98.9 F Pulse Rate 93 H 94 H 90 Respiratory Rate 18 18 15 Blood Pressure 165/75 H 144/70 H 131/75 Pulse Oximetry 93 L 93 L 92 L Intake & Output 05/08/18 05/09/18 05/09/18 18:59 06:59 18:59 Intake Total 1000 / 1000 2480 / 2480 Balance 1000 / 1000 2480 / 2480 Weight 87.4 kg Intake: IV 1000 / 1000 1999 / 1999 1/2 Normal Saline Inj 1,000 ML 1000 / 1000 1999 @ 125 mls/hr IV.CONT .Q8H [facility] Rx#:[id number] Oral 480 / 480 Other: # Voids 4 5 Date of Last Bowel Movement 05/06/18 05/08/17 <Neelima Emanuel - 05/09/18 11:24> - Constitutional no acute distress <Neelima Emanuel - 05/09/18 11:38> - Routine HEENT Exam Head: Present: normocephalic, atraumatic <Neelima Emanuel - 05/09/18 11:38> - Routine Respiratory Exam Present: CTA bilaterally. Absent: accessory muscle use <Neelima Emanuel - 05/09/18 11:38> - Routine Cardiovascular Exam Present: RRR, S1, S2. 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, unspecified Status: Acute (2) Anemia Code(s): D64.9 - Anemia, unspecified Status: Acute (3) CKD (chronic kidney disease) Code(s): N18.9 - Chronic kidney disease, unspecified Status: Acute (4) Gout Code(s): M10.9 - Gout, unspecified Status: Acute (5) DVT prophylaxis Status: Acute (6) Nutrition, metabolism, and development symptoms Code(s): R63.8 - Other symptoms and signs concerning food and fluid intake Status: Acute <Tu Mishra - 05/09/18 12:07> (1) Sickle cell pain crisis Code(s): D57.00 - Hb-SS disease with crisis, unspecified Status: Acute Plan: 42-year-old male with a past medical history of sickle cell disease, CKD, iron overload and gout who presents with vaso-occlusive crisis. Patient's pain is well controlled at this time. Discussed with hematology nurse practitioner and no transfusion at this time with a hemoglobin of 5.2 as he is symptomatic. He will be discharged today. Medications: -Pain management - * Percocet 10\325 q6h for breakthrough pain PRN * Dilaudid 2 mg IV q3h [facility] -Hydroxyurea 500 mg BID and folic acid 1 mg daily Laboratory: - WBC elevated at 13.7->12.9 - Hgb 5.2 (Holding off on transfusion at request of hematology due to Hx of iron overload and pt is currently asymptomatic) - CRP elevated at 1.23 - PT/INR WNL Imaging: -Left hip x-ray -Chest x-ray: patient with bilateral basal rhonchi Consults: -Consult hematology appreciate recommendations (2) Anemia Code(s): D64.9 - Anemia, unspecified Status: Acute Plan: Hemoglobin of 6.0 on admission. Patient reports that his hemoglobin is usually around 7-8. He does have a history of acute on chronic CKD with a creatinine of 2.68 on admission. Historic Cr 1.6. -Hold on transfusion per discussion with Sang Win, as pt is asymptomatic and has Hx Iron overload -If pt becomes symptomatic or hemodynamically unstable, consider transfusion -Consult hematology appreciate recommendations (3) CKD (chronic kidney disease) Code(s): N18.9 - Chronic kidney disease, unspecified Status: Acute Plan: Patient with a creatinine of 2.68 on admission and 2.35 on 05/09. Patient's creatinine in August 2015 was 1.88. Patient is followed by a associate veterinarian in [facility] and was last seen 1 month ago per the patient. -Avoid nephrotoxic drugs -Renal diet -Sodium Bicarb 650 mg BID per nephrology -Consult nephrology appreciate recommendations for further transfusion and fluid administration. (4) Gout Code(s): M10.9 - Gout, unspecified Status: Acute Plan: Patient takes Uloric 40 mg daily at home. This medication is not on our formulary in the hospital. -Hold Uloric (5) DVT prophylaxis Status: Acute Plan: Heparin 5,000 units q12h (6) Nutrition, metabolism, and development symptoms Code(s): R63.8 - Other symptoms and signs concerning food and fluid intake Status: Acute Plan: -Zofran 4 mg q6h PRN -Tylenol 650 mg q6h PRN -Benadryl 25 mg q6h PRN itching -Renal diet Pt SDW Jaylon Barnes, and Jenae <Neelima Emanuel - 05/09/18 11:28> - Attending Attestation See the residents documentation for details. I saw and evaluated the patient regarding the carlton portions of this evaluation and agree with the residents findings and plans as written. Parts of this note were created using [employer] voice recognition software program. While efforts were made to correct any mistakes made by this software, some mistakes, errors, and omissions may remain in the final note that were not caught when the note was originally created. Plan of care was discussed and agreed upon with the patient as specifically documented in the above note. An opportunity to ask questions with explanation was provided. Patient voiced understanding on all information reviewed and discussed. <Tu Mishra - 05/09/18 12:07>
--- NOTE | 2018-05-09 11:48 | P.PNONC ---
Subjective Interval history: Afebrile. O2 sat 92% on room air. Patient lying in bed, appears to be in pain. He states he is waiting for the nurse to bring him his pain medication. The patient wants to go home today. His family is at the bedside, including his . We have discussed staying hydrated. He denies any chest pain or shortness of breath. Objective Vital Signs/Intake & Output: Vital Signs 05/08/18 12:00 05/08/18 16:00 05/08/18 20:00 Temperature 98.2 F 97.8 F 98.5 F Pulse Rate 71 64 86 Respiratory Rate 19 19 18 Blood Pressure 160/72 H 139/73 165/77 H Pulse Oximetry 92 L 95 95 05/09/18 00:00 05/09/18 04:00 05/09/18 08:00 Temperature 97.5 F L 98.6 F 98.9 F Pulse Rate 93 H 94 H 90 Respiratory Rate 18 18 15 Blood Pressure 165/75 H 144/70 H 131/75 Pulse Oximetry 93 L 93 L 92 L Intake & Output 05/08/18 05/09/18 05/09/18 18:59 06:59 18:59 Intake Total 1000 / 1000 2480 / 2480 Balance 1000 / 1000 2480 / 2480 Weight 87.4 kg Intake: IV 1000 / 1000 1999 / 1999 1/2 Normal Saline Inj 1,000 ML 1000 / 1000 1999 / 1999 @ 125 mls/hr IV.CONT .Q8H [facility] Rx#:[id number] Oral 480 / 480 Other: # Voids 4 5 Date of Last Bowel Movement 05/06/18 05/08/17 Result Diagrams: 05/09/18 08:00 05/09/18 08:00 Laboratory Results: Laboratory Results - last 24 hr 05/08/18 05/08/18 05/08/18 05:08 18:00 20:15 WBC RBC Hgb Hct MCV MCH MCHC RDW Plt Count MPV Prelim Diff (Auto) Neut % (Auto) Lymph % (Auto) Potter % (Auto) Eos % (Auto) Baso % (Auto) Neut # (Auto) Lymph # (Auto) Potter # (Auto) Eos # (Auto) Baso # (Auto) WBC Differential Seg Neuts % (Manual) Band Neuts % (Manual) Lymphocytes % (Manual) Monocytes % (Manual) Eosinophils % (Manual) Abs Neuts (Manual) Nucleated RBCs/100 WBC Differential Comment Platelet Estimate Platelet Morphology Pappenheimer Bodies Sickle Cells Target Cells Ovalocytes Wilson-Atkinson Bodies Sodium 143 Potassium 4.7 D Chloride 117 H Carbon Dioxide 19.3 L Anion Gap 7 BUN 30 H Creatinine 2.41 H Estimated GFR 36 L Random Glucose 105 Calcium 7.6 L Ur 24 Hour Volume 5805 Ur Total Protein 24 Hr 3262 H 05/09/18 05/09/18 08:00 08:00 WBC 13.5 H RBC 1.51 L Hgb 5.2 L* Hct 15.0 L* MCV 99.4 MCH 34.5 H MCHC 34.7 RDW 22.8 H Plt Count 209 MPV 7.4 Prelim Diff (Auto) Slide review pending Neut % (Auto) 41.7 Lymph % (Auto) 38.7 Potter % (Auto) 9.0 H Eos % (Auto) 9.8 H Baso % (Auto) 0.8 Neut # (Auto) 5.6 Lymph # (Auto) 5.2 H Potter # (Auto) 1.2 H Eos # (Auto) 1.3 H Baso # (Auto) 0.1 WBC Differential Manual diff final Seg Neuts % (Manual) 30 Band Neuts % (Manual) 1 Lymphocytes % (Manual) 59 H Monocytes % (Manual) 4 Eosinophils % (Manual) 6 H Abs Neuts (Manual) 4.2 Nucleated RBCs/100 WBC 3 H Differential Comment . Platelet Estimate Normal Platelet Morphology Normal Pappenheimer Bodies Present H Sickle Cells 1+ H Target Cells 1+ H Ovalocytes 1+ H Wilson-Atkinson Bodies Present H Sodium 143 Potassium 5.0 Chloride 117 H Carbon Dioxide 21.0 Anion Gap 5 BUN 29 H Creatinine 2.35 H Estimated GFR 37 L Random Glucose 92 Calcium 7.6 L Ur 24 Hour Volume Ur Total Protein 24 Hr Medications: Active Medications Generic Name Dose Route Start Last Admin Trade Name Freq PRN Reason Stop Dose Admin Diphenhydramine HCl 25 mg 05/07/18 12:35 05/08/18 23:31 Benadryl PO 25 mg Q6H PRN Administration ITCHING Folic Acid 1 mg 05/07/18 09:30 05/09/18 08:31 Folic Acid PO 1 mg DAILY LEX Administration Heparin Sodium (Porcine) 5,000 units 05/07/18 21:30 05/08/18 21:55 Heparin Inj SQ 5,000 units Q12HR LEX Administration Hydromorphone HCl 2 mg 05/08/18 14:00 05/09/18 08:30 Dilaudid Pf Inj IV.PUSH 2 mg Q3H LEX Administration Hydroxyurea 500 mg 05/08/18 13:00 05/09/18 01:00 Hydrea PO 500 mg Q12H LEX Administration Sodium Chloride 1,000 mls @ 125 mls/hr 05/08/18 12:00 05/09/18 04:00 1/2 Normal Saline Inj IV.CONT 125 mls/hr .Q8H [facility] Administration Ondansetron HCl 4 mg 05/07/18 08:52 05/08/18 23:31 Zofran Inj IV.PUSH 4 mg Q6H PRN Administration NAUSEA OR VOMITING Oxycodone/Acetaminophen 1 tab 05/07/18 08:52 05/08/18 17:59 Percocet 10/325 Mg PO 1 tab Q6H PRN Administration PAIN SCALE 6 TO 10 Sodium Bicarbonate 650 mg 05/08/18 16:00 05/09/18 08:31 Sodium Bicarbonate PO 650 mg BID LEX Administration Objective Remarks: GENERAL: Well-nourished, well-developed male patient, in no acute distress. SKIN: Warm and dry. HEAD: Normocephalic. EYES: No scleral icterus. No injection or drainage. NECK: Supple, trachea midline. CARDIOVASCULAR: Regular rate and rhythm without murmurs. RESPIRATORY: Breath sounds equal bilaterally. Nonlabored at rest. GASTROINTESTINAL: Abdomen soft, non-tender, nondistended. EXTREMITIES: No cyanosis, or edema. MUSCULOSKELETAL: Adequate muscle tone. NEUROLOGICAL: No obvious focal deficit. Awake, alert, and oriented x3. PSYCHIATRIC: Appropriate mood and affect; insight and judgment normal. Assessment/Plan - Plan Mr. Cesar is a pleasant 42-year-old gentleman with a history of sickle cell disease, currently hospitalized for sickle cell pain crisis. His pain includes lower back pain and bilateral leg pain that started on Monday. He has additional medical history of chronic kidney disease, iron overload, hemoglobin SS disease and gout. Recommendations: 1. Sickle cell pain crisis, discussed with attending, , she reports that the patient is stable and eager to go home, she will discharge today cleared by hematology. 2. Sickle cell anemia, hemoglobin 5.2 today. Currently asymptomatic. We will hold transfusions unless patient becomes symptomatic or hemodynamically unstable. He has a history of iron overload. 3. Patient eager to go home, we will sign off from a hematology standpoint. Patient educated on the importance of staying hydrated and returning if he has any increasing symptoms.
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
[2018-05-09 13:52] VITALS: RESP 16
[2018-05-09] MEDS: Heparin - SQ 10,000 UNITS/ML Vial SQ SCH (14:13)
[2018-05-09 17:45] VITALS: BP 117/84; PULSE 86; TEMP 98.4; O2SAT 94
--- NOTE | 2018-05-09 19:38 | ECG ---
Date Performed: 05/08/2018 Time Performed: 18:18:31 PTAGE: 42 years EKG: Sinus rhythm NORMAL ECG PREVIOUS TRACING : 05/07/2018 06.23 Since the previous tracing, no significant change noted DOCTOR: Denny Knight Interpretating Date/Time 05/09/2018 19:37:51
== END 2018-05-09 18:25 | disposition home or self-care (01) ==
LOC: NEPC 05:24 → NEDA 08:30 → N06 10:01
PROVIDERS: ADMIT Family Medicine; ATTEND Family Medicine